=== PATIENT | female | born 1990 | race Two or more races ===

== ENCOUNTER 2021-02-24 18:39 | Emergency (ER) | payer SELFPAY ==
[~2021-02-24] VITALS: Ht 154.9 cm; Wt 65.3 kg
--- NOTE | 2021-02-24 21:28 | PHYS DOC ---
General Adult EDM: Chief Complaint: SHORTNESS OF BREATH HPI: HPI: Patient is a 31 year old female without pertinent past medical history who presents with chest pain, shortness of breath. States that she has had 3 weeks of a dry cough, and sore throat. States that she was treated for strep throat approximately 3 weeks ago. Had been doing okay until today when she began experiencing chest pressure in the upper anterior chest. Does not radiate. Associated with shortness of breath and dizziness. Worse with coughing. Also complaining of muscle cramping in both of her legs. Denies any preceding leg swelling. No recent surgeries or immobilization. No history of DVT/PE. Not on blood thinners. Not on OCPs. Not a smoker. States that the chest pain and shortness of breath began suddenly at around 7pm She has not been vaccinated for Covid Review of Systems: Review of Systems: Constitutional: Denies fever or chills. [] Eyes: Denies change in visual acuity. [] HENT: Reports sore throat and frequent cough [] Respiratory: Ports cough and shortness of breath. [] Cardiovascular: Reports chest pain. Denies edema. [] GI: Denies abdominal pain, nausea, vomiting, bloody stools or diarrhea. [] : Denies dysuria. [] Musculoskeletal: Denies back pain or joint pain. [] Integument: Denies rash. [] Neurologic: Denies headache, focal weakness or sensory changes. [] Endocrine: Denies polyuria or polydipsia. [] Lymphatic: Denies swollen glands. [] Psychiatric: Denies depression or anxiety. [] Heart Score: C/O Chest Pain: Yes HEART Score for Chest Pain: HEART Score for Chest Pain Response (Comments) Value History Slighlty/Non-Suspicious 0 ECG Normal 0 Age < 45 0 Risk Factors No Risk Factors 0 Total 0 Risk Factors: Risk Factors: DM, Current or recent (<one month) smoker, HTN, HLP, family history of CAD, obesity. Risk Scores: Score 0 - 3: 2.5% MACE over next 6 weeks - Discharge Home Score 4 - 6: 20.3% MACE over next 6 weeks - Admit for Clinical Observation Score 7 - 10: 72.7% MACE over next 6 weeks - Early Invasive Strategies Physical Exam: PE: Constitutional: Well developed, well nourished, no acute distress, non-toxic appearance. [] HENT: Normocephalic, atraumatic, bilateral external ears normal, oropharynx moist, no oral exudates, nose normal. [] Eyes: PERRLA, EOMI, conjunctiva normal, no discharge. [] Neck: Normal range of motion, no tenderness, supple, no stridor. [] Cardiovascular:Heart rate regular rhythm, no murmur [] Lungs & Thorax: Normal work of breathing. Bilateral breath sounds clear to auscultation [] Abdomen: Bowel sounds normal, soft, no tenderness, no masses, no pulsatile masses. [] Skin: Warm, dry, no erythema, no rash. [] Back: No tenderness, no CVA tenderness. [] Extremities: No tenderness, no cyanosis, no clubbing, ROM intact, no edema. [] Neurologic: Alert and oriented X 3, normal motor function, normal sensory function, no focal deficits noted. [] Psychologic: Affect normal, judgement normal, mood normal. [] Current Patient Data: Vital Signs: Vital Signs Date Time Temp Pulse Resp B/P (MAP) Pulse Ox O2 Delivery O2 Flow Rate FiO2 02/24/21 21:05 98.0 75 145/90 (108) 100 Room Air 98.0 EKG: EKG: Sinus rhythm. Rate 85. Normal axis. Normal intervals. No Q waves, T wave inversion, ST elevation, or ST depression. [] Radiology/Procedures: Radiology/Procedures: [] Impression: [facility] [address] [place], [place] [id number] IMAGING REPORT Signed PATIENT: KAVYA UREÑA ACCOUNT: [id number] : 1990 LOCATION: ER AGE: 31 SEX: F EXAM STATUS: REG ER ORD. PHYSICIAN: MERLYN SOTO MD REASON: chest pain, sob, cough PROCEDURE: CHEST AP ONLY EXAM: XR CHEST 1V 02/24/2021 10:55 PM CLINICAL INDICATION: Chest pain, shortness of breath, cough COMPARISON: None TECHNIQUE: AP view the chest FINDINGS: The heart and mediastinum are normal. Lungs are adequately expanded. There is no consolidation, pleural effusion, or pneumothorax. No acute osseous abnormality. IMPRESSION: No acute cardiopulmonary abnormality. Electronically signed by: Marj Trejo MD (02/25/2021 12:34 AM) [facility] DICTATED and SIGNED BY: MARJ TREJO MD DATE: 02/25/21 [id number] 0 Course & Med Decision Making: Course & Med Decision Making Pertinent Labs and Imaging studies reviewed. (See chart for details) Patient is a 31-year-old female who presents with chest pain, shortness of breath, dizziness after a several week prodrome of cough and sore throat. On arrival is afebrile, hemodynamically stable. Satting 100% on room air. Heart rate 85. EKG nonischemic. No risk factors for ACS, feel a single troponin should be sufficient to rule out. Given her description of the pain and no other readily explainable alternative diagnosis PE was considered. D-dimer ordered. Depending on results of D-dimer will image the chest with either CTA or chest x- ray to evaluate for pneumonia, pneumothorax, other acute pulmonary process. Covid test ordered. 2127 Rapid Covid negative. Troponin negative. Dimer negative. Chest x-ray without acute process. Labs otherwise unremarkable aside from mild leukocytosis 12.3. No clear etiology for symptoms identified, but feel she is safe for discharge with outpatient follow-up at this time. Covid PCR is pending. Isolation precautions advised. Carl Disclaimer: Carl Disclaimer: This electronic medical record was generated, in whole or in part, using a voice recognition dictation system. Departure Departure Impression: Primary Impression: Chest pain Disposition: HOME / SELF CARE / HOMELESS Condition: STABLE Referrals: NO PCP (PCP) Additional Instructions: Your work-up was very reassuring. There is no evidence of strain on your heart or blood clot in your lungs. Your chest x-ray was normal. No evidence of pneumonia was seen. Your labs were essentially normal as well. Your rapid Covid test was negative. A more accurate test is pending, and should be available tomorrow. If you do not hear about your results feel free to call the emergency department for them by tomorrow afternoon. If you do not have a PCP, please call the number for the [facility] at [phone]. MERLYN SOTO MD Feb 24, 2021 21:28
[2021-02-24 21:32] LABS: BASO % 0 % (0-3); EOS % 0 % (0-3); HEMATOCRIT 37.2 % (36.0-47.0); HEMOGLOBIN 12.4 g/dL (12.0-15.5); LYMPH # 1.3 x10^3/uL (1.0-4.8); LYMPH % 10 % (24-48); MEAN CORPUSCULAR HEMOGLOBIN 28 pg (25-35); MEAN CORPUSCULAR HGB CONC 33 g/dL (31-37); MEAN CORPUSCULAR VOLUME 85 fL (79-100); MONO # 0.5 x10^3/uL (0.0-1.1); MONO % 4 % (0-9); NEUT # 10.5 x10^3/uL (1.8-7.7); NEUT % 85 % (31-73); PLATELET COUNT 299 x10^3/uL (140-400); RED BLOOD COUNT 4.36 x10^6/uL (3.50-5.40); RED CELL DISTRIBUTION WIDTH 15.2 % (11.5-14.5); WHITE BLOOD COUNT 12.3 x10^3/uL (4.0-11.0)
[2021-02-24 21:46] LABS: CALCIUM 8.5 mg/dL (8.5-10.1); CREATININE 0.8 mg/dL (0.6-1.0); GFR 83.1; POTASSIUM 3.7 mmol/L (3.5-5.1)
[2021-02-24 23:36] VITALS: BP 116/83
--- NOTE | 2021-02-25 00:36 | RAD ---
EXAM: XR CHEST 1V 02/24/2021 10:55 PM CLINICAL INDICATION: Chest pain, shortness of breath, cough COMPARISON: None TECHNIQUE: AP view the chest FINDINGS: The heart and mediastinum are normal. Lungs are adequately expanded. There is no consolida tion, pleural effusion, or pneumothorax. No acute osseous abnormality. IMPRESSION: No acute cardiopulmonary abnormality. Electronically signed by: Marj Trejo MD (02/25/2021 12:34 AM) [facility]
--- NOTE | 2021-02-25 16:57 | NUR ---
IP:Attempted to contact pt concerning covid results. No answer, left a voicemail to return the call.
== END 2021-02-25 01:33 | disposition home or self-care (01) ==
LOC: ER 18:39
DX: R07.89 Other chest pain (principal); Z20.822 Contact with and (suspected) exposure to COVID-19; R06.02 Shortness of breath; R05.9 Cough, unspecified; J02.9 Acute pharyngitis, unspecified; R42 Dizziness and giddiness
CPT/HCPCS: 36415; 71045; 80048; 84484; 85025; 85379; 87426; 99285; U0003; U0005

== ENCOUNTER 2021-09-10 22:07 | Emergency (ER) | payer SELFPAY | END 2021-09-10 23:00 | disposition left against medical advice (07) | LOC: ER 22:07 | DX: R11.0 Nausea (principal); M79.10 Myalgia, unspecified site; Z53.21 Procedure and treatment not carried out due to patient leaving prior to being seen by health care provider ==